=== PATIENT | male | born 2005 | race Hispanic/Latino ===

== ENCOUNTER 2024-06-26 18:38 | Emergency (ER) | payer BC ==
[~2024-06-26] VITALS: Ht 185.4 cm; Wt 95.3 kg
[2024-06-26 19:45] VITALS: PULSE 99; RESP 20; TEMP 98.6
[2024-06-26] MEDS ORDERED: PREDNISONE 20 MG TAB ONE (19:53)
[2024-06-26] MEDS: DIPHENHYDRAMINE HCL 25 MG CAP PO ONE (19:58)
[2024-06-26] MEDS: PREDNISONE 10 MG TAB PO ONE (19:59)
[2024-06-26 21:47] VITALS: BP 147/100; PULSE 99; RESP 17; TEMP 98.3; O2SAT 100
[2024-06-26] MEDS ORDERED: PREDNISONE20 MG PO (21:47)
== END 2024-06-26 21:49 | disposition home or self-care (01) ==
LOC: ER 18:47
DX: T50.995A Adverse effect of other drugs, medicaments and biological substances, initial encounter (principal); T36.8X5A Adverse effect of other systemic antibiotics, initial encounter
CPT/HCPCS: 99283; J7512